=== PATIENT | male | born 1975 | race Caucasian/White ===

== ENCOUNTER 2019-09-04 17:44 | Emergency (ER) | payer OTHER ==
[~2019-09-04] VITALS: Ht 188 cm; Wt 95.2 kg
[~2019-09-04 17:44] MED LIST: AMOX500; ARIP10 PO; BACL10 PO; BENZ.5 PO; BUPR150T2; BUPR150T2 PO; CEPH500 PO; CIPR500 PO; CIPRO500 MG PO; CLON.1 PO; CLON.2 PO; CLON1; CLON1 PO; DOCU100 PO; ESCI10 PO; FLUO10 PO; FLUO20 PO; GABA300; GABA600 PO; HYDACE5 PO; IBUP200; IBUP800 PO; LIDO2TG30 TOP; MELA3 PO; OLAN10 PO; OLAN5 PO; PENVK500 PO; RANI150 PO; RISP2 PO; SULTRIDS PO; TRAM50; TRAM50 PO; TRAMADOL; ZIPR40
[2019-09-04] MEDS ORDERED: Augmentin 875-1 EACH PO (18:05)
== END 2019-09-04 18:43 | disposition home or self-care (01) ==
LOC: ER 17:44
DX: S61.452A Open bite of left hand, initial encounter (principal); F32.9 Major depressive disorder, single episode, unspecified; F25.9 Schizoaffective disorder, unspecified; F17.200 Nicotine dependence, unspecified, uncomplicated; Z88.8 Allergy status to other drugs, medicaments and biological substances; Z91.011 Allergy to milk products; Z79.899 Other long term (current) drug therapy; W54.0XXA Bitten by dog, initial encounter
CPT/HCPCS: 90471; 90714; 99283-25

== ENCOUNTER → 2019-12-16 | Outpatient (CLI) | payer OTHER ==
[~2019-12-16] MED LIST changes: +Augmentin 875-1 EACH PO
== END | disposition home or self-care (01) ==
LOC: LAB EV 17:00 → LAB SHORT 17:00
DX: N39.0 Urinary tract infection, site not specified (principal)
CPT/HCPCS: 87077; 87086; 87186

== ENCOUNTER → 2020-06-22 | Outpatient (CLI) | payer OTHER | LOC: LAB 15:40 → LAB SHORT 15:40 | DX: N39.0 Urinary tract infection, site not specified (principal) | CPT/HCPCS: 87086 ==

== ENCOUNTER → 2020-07-26 | Outpatient (CLI) | payer OTHER | END | disposition home or self-care (01) | LOC: LAB SHORT 16:26 → LAB EV 16:26 | DX: N39.0 Urinary tract infection, site not specified (principal) | CPT/HCPCS: 87077; 87086; 87186 ==

== ENCOUNTER → 2020-10-06 | Outpatient (CLI) | payer OTHER | END | disposition home or self-care (01) | LOC: PLD 14:24 | DX: N39.0 Urinary tract infection, site not specified (principal) | CPT/HCPCS: 87086 ==

== ENCOUNTER → 2020-11-30 | Outpatient (CLI) | payer OTHER | END | disposition home or self-care (01) | LOC: LAB SHORT 17:30 → LAB 17:30 | DX: R30.0 Dysuria (principal) | CPT/HCPCS: 87077; 87086; 87186 ==

== ENCOUNTER 2021-09-13 15:18 | Emergency (ER) | payer OTHER ==
[~2021-09-13] VITALS: Ht 180.3 cm; Wt 102.1 kg
[2021-09-13] MEDS ORDERED: OLANZAPINE-FLU1 EAC8 PO (15:57)
[2021-09-13] MEDS ORDERED: ZANAFLEX4 M8 PO (15:57)
[2021-09-13 16:13] LABS: BASOPHILS ABSOLUTE AUTO 0.05 K/mm3 (0.00-0.23); BASOPHILS PERCENT AUTO 0 % (0-2); EOSINOPHILS ABSOLUTE AUTO 0.11 K/mm3 (0.00-0.68); EOSINOPHILS PERCENT AUTO 1 % (0-6); Hematocrit 24.1 % (37.0-53.0); IMMATURE GRAN ABSOLUTE AUTO 0.12 K/mm3 (0.00-0.10); IMMATURE GRAN PERCENT AUTO 1 % (0-1); LYMPHOCYTES ABSOLUTE AUTO 2.68 K/mm3 (0.84-5.20); LYMPHOCYTES PERCENT AUTO 21 % (21-46); MONOCYTES ABSOLUTE AUTO 1.45 K/mm3 (0.16-1.47); MONOCYTES PERCENT AUTO 11 % (4-13); Mean Corpuscular HGB 16.5 pg (26.0-34.0); Mean Corpuscular HGB Conc 24.9 g/dL (31.5-36.5); Mean Corpuscular Volume 66 fL (80-100); NEUTROPHILS ABSOLUTE AUTO 8.52 K/mm3 (1.96-9.15); NEUTROPHILS PERCENT AUTO 66 % (41-73); NRBC ABSOLUTE 0.03 K/mm3 (0.00-0.02); NRBC Auto 0.2 /100 WBC (0.0-0.2); Platelet Count 380 K/mm3 (150-400); RDW Coefficient Variation 20.9 % (11.7-14.2); RDW Standard Deviation 47.7 fL (35.1-46.3); Red Blood Cell Count 3.64 M/mm3 (4.30-5.90); White Blood Cell Count 12.93 K/mm3 (4.00-11.30)
[2021-09-13 16:32] LABS: Alanine Aminotransfer (ALT/SGP 16 U/L (12-78); Albumin, Blood 2.4 g/dL (3.4-5.0); Albumin/Globulin Ratio 0.5 (0.8-1.8); Alk Phos 52 U/L (50-136); Anion Gap 5 mmol/L (6-16); Aspartate Aminotrans (AST/SGOT 9 U/L (12-37); Bilirubin, Total 0.2 mg/dL (0.1-1.0); Blood Urea Nitrogen 10 mg/dL (8-24); Bun/Creatinine Ratio 8.9 (12.0-20.0); CO2, Blood 25 mmol/L (21-32); Calcium, Blood 8.7 mg/dL (8.5-10.1); Chloride, Blood 110 mmol/L (98-108); Creatinine, Blood 1.12 mg/dL (0.60-1.20); Globulin, Blood 4.6 g/dL (2.2-4.0); Glomerular Filtration Rate >60 (60-); Glucose, Blood 79 mg/dL (70-99); Potassium, Blood 3.8 mmol/L (3.5-5.5); Sodium, Blood 140 mmol/L (136-145)
[2021-09-13 18:06] LABS: Acetaminophen, Random <2.0 ug/mL (10.0-30.0); Salicylate 19.4 mg/dL (2.8-20.0)
[2021-09-13 18:56] LABS: Base Excess Venous -0.6 mmol/L; Bicarbonate Venous 23.9 mmol/L (24.0-30.0); PCO2 Venous 42.6 mmHg (38-42); PO2 Venous 52.3 mmHg (38-42); pH Blood Venous 7.37 (7.34-7.37)
[2021-09-13 19:16] LABS: Influenza A, PCR NEGATIVE (NEGATIVE); Influenza B, PCR NEGATIVE (NEGATIVE); Resp Syncytial Virus, PCR NEGATIVE (NEGATIVE); SARS-Cov-2 (COVID-19) PCR, MMC NEGATIVE (NEGATIVE)
[2021-09-13 19:26] LABS: International Normalized Ratio 1.07; Prothrombin Time Results 11.2 Sec (9.7-11.5)
[2021-09-13] MEDS ORDERED: Bactrim Ds Tab1 EACH PO (19:57)
== END 2021-09-13 21:56 | disposition home or self-care (01) ==
LOC: ER 15:18
PROVIDERS: Emergency Medicine; Physician Assistant
DX: L03.211 Cellulitis of face (principal); L02.01 Cutaneous abscess of face; K13.0 Diseases of lips; D62 Acute posthemorrhagic anemia; Z20.822 Contact with and (suspected) exposure to COVID-19; F17.210 Nicotine dependence, cigarettes, uncomplicated; Z88.8 Allergy status to other drugs, medicaments and biological substances; Z91.011 Allergy to milk products; Z79.899 Other long term (current) drug therapy
CPT/HCPCS: 0241U; 36430; 80053; 82803; 83605; 85025; 85610; 86140; 86850; 86900; 86901; 86923; 93005; 93010; 99285-25; A9270; G0480; J7030; P9016

== ENCOUNTER → 2022-01-07 | Outpatient (CLI) | payer OTHER ==
[~2022-01-07] MED LIST changes: +Bactrim Ds Tab1 EACH PO; +OLANZAPINE-FLU1 EAC8 PO; +ZANAFLEX4 M8 PO
== END | disposition home or self-care (01) ==
LOC: LAB 12:48 → LAB SHORT 12:48
DX: N39.0 Urinary tract infection, site not specified (principal)
CPT/HCPCS: 87086

== ENCOUNTER → 2022-05-30 | Outpatient (CLI) | payer OTHER ==
[2022-05-30 18:32] LABS: BASOPHILS ABSOLUTE AUTO 0.03 K/mm3 (0.00-0.23); BASOPHILS PERCENT AUTO 0 % (0-2); EOSINOPHILS ABSOLUTE AUTO 0.02 K/mm3 (0.00-0.68); EOSINOPHILS PERCENT AUTO 0 % (0-6); Hematocrit 43.4 % (37.0-53.0); Hemoglobin 13.6 g/dL (13.5-17.5); IMMATURE GRAN ABSOLUTE AUTO 0.03 K/mm3 (0.00-0.10); IMMATURE GRAN PERCENT AUTO 0 % (0-1); LYMPHOCYTES ABSOLUTE AUTO 1.68 K/mm3 (0.84-5.20); LYMPHOCYTES PERCENT AUTO 21 % (21-46); MONOCYTES ABSOLUTE AUTO 0.49 K/mm3 (0.16-1.47); MONOCYTES PERCENT AUTO 6 % (4-13); Mean Corpuscular HGB 25.3 pg (26.0-34.0); Mean Corpuscular HGB Conc 31.3 g/dL (31.5-36.5); Mean Corpuscular Volume 81 fL (80-100); Mean Platelet Volume 10.8 fL (9.1-12.4); NEUTROPHILS ABSOLUTE AUTO 5.78 K/mm3 (1.96-9.15); NEUTROPHILS PERCENT AUTO 72 % (41-73); Platelet Count 360 K/mm3 (150-400); RDW Coefficient Variation 15.6 % (11.7-14.2); RDW Standard Deviation 46.1 fL (35.1-46.3); Red Blood Cell Count 5.37 M/mm3 (4.30-5.90); White Blood Cell Count 8.03 K/mm3 (4.00-11.30)
== END | disposition home or self-care (01) ==
LOC: LAB SHORT 17:34 → LAB 17:34
PROVIDERS: Student in an Organized Health Care Education/Training Program
DX: D51.9 Vitamin B12 deficiency anemia, unspecified (principal)
CPT/HCPCS: 82607; 82728; 82746; 83540; 83550; 85025

== ENCOUNTER 2024-08-19 06:30 | Inpatient (IN) | payer OTHER ==
[~2024-08-19] VITALS: Ht 180.3 cm; Wt 81.7 kg
[2024-08-19] VITALS (15 sets, daily range): BP systolic 84–126; BP diastolic 49–96
[2024-08-19 07:10] LABS: BASOPHILS ABSOLUTE AUTO 0.02 K/mm3 (0.00-0.23); BASOPHILS PERCENT AUTO 0 % (0-2); EOSINOPHILS ABSOLUTE AUTO 0.02 K/mm3 (0.00-0.68); EOSINOPHILS PERCENT AUTO 0 % (0-6); IMMATURE GRAN PERCENT AUTO 2 % (0-1); LYMPHOCYTES ABSOLUTE AUTO 2.23 K/mm3 (0.84-5.20); LYMPHOCYTES PERCENT AUTO 15 % (21-46); MONOCYTES ABSOLUTE AUTO 0.63 K/mm3 (0.16-1.47); MONOCYTES PERCENT AUTO 4 % (4-13); Mean Corpuscular HGB 28.6 pg (26.0-34.0); Mean Corpuscular HGB Conc 29.4 g/dL (31.5-36.5); Mean Corpuscular Volume 97 fL (80-100); Mean Platelet Volume 11.2 fL (9.1-12.4); NEUTROPHILS PERCENT AUTO 79 % (41-73); NRBC ABSOLUTE 0.03 K/mm3 (0.00-0.02); NRBC Auto 0.2 /100 WBC (0.0-0.2); Platelet Count 392 K/mm3 (150-400); RDW Coefficient Variation 20.1 % (11.7-14.2); RDW Standard Deviation 68.9 fL (35.1-46.3); Red Blood Cell Count 1.05 M/mm3 (4.30-5.90)
[2024-08-19] MEDS ORDERED: NS 1,000 ML IV SCH ×3 (07:10→08:35)
[2024-08-19 07:11] LABS: Albumin, Blood 1.9 g/dL (3.4-5.0); Albumin/Globulin Ratio 0.7 (0.8-1.8); Bilirubin, Total 0.1 mg/dL (0.1-1.0); Creatinine, Blood 1.16 mg/dL (0.60-1.20); Globulin, Blood 2.9 g/dL (2.2-4.0); Potassium, Blood 3.9 mmol/L (3.5-5.5); Total Protein, Blood 4.8 g/dL (6.4-8.2)
[2024-08-19 07:16] LABS: Hematocrit 10.2 % (37.0-53.0)
[2024-08-19 09:56] LABS: Source, Urine Straight Cath
[2024-08-19 10:12] LABS: Appearance, Urine Clear (Clear); Bilirubin, Urine Neg (Neg); Blood, Urine Neg (Neg); Color, Urine Yellow (P-Yellow); Glucose Qualitative, Urine Neg (Neg); Ketones, Urine Neg (Neg); Leukocyte Esterase, Urine 3+ (Neg); Nitrite, Urine Neg (Neg); Protein, Urine Neg (Neg); Specific Gravity, Urine 1.015 (1.003-1.022); Urobilinogen, Urine NORM (Normal)
[2024-08-19 11:08] LABS: Bacteria Few /hpf; Red Blood Cells, Urine 0-2 /hpf (0-2); Squamous Epithelial Cells Rare /hpf (Few)
[2024-08-19] MEDS ORDERED: Ciprofloxacin 400MG/D5 200ML 200 ML IV ONE (11:35)
[2024-08-19] MEDS ORDERED: Pantoprazole Sodium 40 MG Injection IV ONE ×2 (12:15→20:50)
[2024-08-19] MEDS ORDERED: FLU VACC TS2024-25(6MOS UP)/PF 45 MCG/0.5 ML SYRINGE IM SCH (14:00)
[2024-08-19 14:15] LABS: Percent Saturation 4.1 % (20.0-50.0)
[2024-08-19] MEDS ORDERED: TiZANidine HCl 4 MG Tab PO SCH (15:00)
[2024-08-19] MEDS ORDERED: CefTRIAXone Sodium 1,000 MG in NS 100 ML IV SCH (15:00)
[2024-08-19 15:05] LABS: Hematocrit 24.2 % (37.0-53.0); Hemoglobin 7.4 g/dL (13.5-17.5)
[2024-08-19] MEDS ORDERED: Iron Dextran 975 MG in NS 250 ML IV ONE (17:40)
[2024-08-19] MEDS ORDERED: Iron Dextran 50 MG / ML 2ML Vial IV ONE (17:40)
[2024-08-19 18:37] LABS: Hemoglobin 4.3 g/dL (13.5-17.5)
[2024-08-19] MEDS ORDERED: Pantoprazole Sodium 40 MG in NS 50 ML IV SCH (20:50)
[2024-08-19] MEDS ORDERED: Octreotide Acetate 500 MCG in NS 250 ML IV SCH (20:50)
[2024-08-19] MEDS ORDERED: Octreotide Acetate 50 MCG in NS 50 ML IV STA (20:51)
[2024-08-19] MEDS ORDERED: Lactobacil 2-S.Thermo-Bifido 1 1 Cap PO SCH (21:00)
[2024-08-19] MEDS ORDERED: ClonazePAM 1 MG Tab PO SCH (21:00)
[2024-08-19] MEDS ORDERED: Gabapentin 400 MG Cap PO SCH (21:00)
[2024-08-19] MEDS ORDERED: NS 250 ML IV SCH (23:20)
[2024-08-19 23:47] LABS: Hematocrit 17.5 % (37.0-53.0); Hemoglobin 5.7 g/dL (13.5-17.5)
[2024-08-19 23:49] LABS: International Normalized Ratio 0.99; Prothrombin Time Results 10.6 Sec (9.7-11.5)
[2024-08-20] MEDS ORDERED: LORazepam 2 MG/ML 1ML Injection IV ONE (01:10)
[2024-08-20] MEDS ORDERED: Iron Dextran 50 MG / ML 2ML Vial IV ONE ×2 (09:00)
== END 2024-08-20 01:50 | disposition short-term general hospital (02) | DRG 811 ==
LOC: ER 06:30 → ERHOLD 13:55
PROVIDERS: Internal Medicine; Student in an Organized Health Care Education/Training Program; ADMIT Family Medicine
PROC: 3E033XZ Introduction of Vasopressor into Peripheral Vein, Percutaneous Approach (ICD-10-PCS; principal; 2024-08-19)
PROC: 30233N1 Transfusion of Nonautologous Red Blood Cells into Peripheral Vein, Percutaneous Approach (ICD-10-PCS; 2024-08-19)
PROC: 02HV33Z Insertion of Infusion Device into Superior Vena Cava, Percutaneous Approach (ICD-10-PCS; 2024-08-19)
PROC: B548ZZA Ultrasonography of Superior Vena Cava, Guidance (ICD-10-PCS; 2024-08-19)
DX: D50.0 Iron deficiency anemia secondary to blood loss (chronic) (principal); K20.91 Esophagitis, unspecified with bleeding; F84.0 Autistic disorder; N39.0 Urinary tract infection, site not specified; F25.9 Schizoaffective disorder, unspecified; F32.A Depression, unspecified; N31.9 Neuromuscular dysfunction of bladder, unspecified; Z98.1 Arthrodesis status; F17.210 Nicotine dependence, cigarettes, uncomplicated; Z88.8 Allergy status to other drugs, medicaments and biological substances; Z79.899 Other long term (current) drug therapy; R25.2 Cramp and spasm; G62.9 Polyneuropathy, unspecified; G47.00 Insomnia, unspecified; G89.29 Other chronic pain; M54.9 Dorsalgia, unspecified
CPT/HCPCS: 36430; 36556; 51701; 71045; 74174; 80053; 81001; 82728; 83540; 83550; 83690; 85014; 85018; 85025; 85610; 86850; 86900; 86901; 86923; 87086; 87147; 93005; 93010; 96365; 96366; 96375; 99291-25; A9270; C1751; J0696; J0744; J1750; J2060; J2354; J2470; J7030; J7050; J7060; P9016; Q9967

== ENCOUNTER → 2025-01-24 | Outpatient (CLI) | payer OTHER ==
[~2025-01-24] MED LIST changes: +GABAPENTIN600 MG PO; +KLONOPIN0.5 M9 PO; +PANTOPRAZOLE SO40 M2 PO; +SUCRALFATE114 PO; +ZANAFLEX413 PO
== END | disposition home or self-care (01) ==
LOC: LAB 10:00 → LAB SHORT 10:00
DX: N39.0 Urinary tract infection, site not specified (principal)
CPT/HCPCS: 87086

== ENCOUNTER → 2025-03-16 | Outpatient (CLI) | payer OTHER | LOC: LAB 08:51 → LAB SHORT 08:51 | DX: N39.0 Urinary tract infection, site not specified (principal) | CPT/HCPCS: 87086; 87147; 87186 ==

== ENCOUNTER → 2025-06-13 | Outpatient (CLI) | payer OTHER | LOC: LAB SHORT 13:46 → LAB 13:46 | DX: N39.0 Urinary tract infection, site not specified (principal) | CPT/HCPCS: 87086 ==